=== PATIENT | male | born 2000 | race Caucasian/White ===

== ENCOUNTER 2025-02-10 11:34 | Emergency (ER) | payer OTHER ==
[~2025-02-10] VITALS: Ht 182.9 cm; Wt 113.0 kg
[~2025-02-10 11:34] MED LIST: FLUOXETINE HCL40 MG PO; HYDROXYZINE HCL50 MG PO
[2025-02-10] MEDS ORDERED: CYCLOBENZAPRINE HCL 10 MG TAB PO ONE (13:30)
[2025-02-10] MEDS ORDERED: LIDOCAINE HCL 4% 1 EACH PATCH TD ONE (13:30)
[2025-02-10] MEDS ORDERED: OXYCODONE/APAP 5/325 TAB PO ONE (13:30)
[2025-02-10] MEDS ORDERED: IBUPROFEN 600 MG TAB PO ONE (13:30)
[2025-02-10] MEDS ORDERED: PREDNISONE20 MG PO (13:35)
[2025-02-10] MEDS ORDERED: CYCLOBENZAPRINE10 MG PO (13:35)
[2025-02-10 15:10] VITALS: BP 140/85
[2025-02-10] MEDS ORDERED: LIDOCAINE PATCH REMOVAL 1 EA TD SCH (21:00)
== END 2025-02-10 15:10 | disposition home or self-care (01) ==
LOC: ED 11:34
DX: M54.50 Low back pain, unspecified (principal)
CPT/HCPCS: 99283; A9270